=== PATIENT | female | born 1945 | race Caucasian/White ===

== ENCOUNTER 2018-12-01 16:07 | Inpatient (IN) | payer MEDICARE, OTHER ==
[2018-12-01] VITALS (7 sets, daily range): BP systolic 181–207; BP diastolic 69–110
[~2018-12-01] VITALS: Ht 154.9 cm; Wt 76.3 kg
--- NOTE | ~2018-12-01 | EKG ---
[place], [place] ELECTROCARDIOGRAM REPORT NAME: CHRISTIANO NEAL UNIT #: [id number] ROOM: 404 DOCTOR: RAFAEL DRAFT REPORT BIRTHDATE: [birth year] [facility] Test Date: 2018-12-01 Test Time: 19:11:21 Pat Name: CHRISTIANO NEAL Department: Room: 404 Gender: F Molecular Biologist: Sanjana Macias : 1945 Requested By: ALLA KRISHNAN Order Number: [id number] Reading MD: Antonia Espinal MD Measurements Intervals [place] Rate: 71 P: 28 MN: 185 QRS: -63 QRSD: 143 T: 117 QT: 456 QTc: 496 Interpretive Statements Atrial-ventricular dual-paced complexes No further analysis attempted due to paced rhythm Baseline wander in lead(s) V2 Compared to ECG 11/03/2018 18:47:22 No significant changes Electronically Signed On 12-07-2018 8:05:56 PDT by Antonia Espinal MD CM:EKGRPT:ELECTROCARDIOGRAM REPORT [id number] [id number] ALLA HALL DRAFT REPORT ALLA KRISHNAN M.D.
--- NOTE | ~2018-12-01 | EKG ---
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
--- NOTE | ~2018-12-01 | EKG ---
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 Macias : 1945 Requested By: ALLA KRISHNAN Order Number: [id number] Reading MD: Antonia Espinal MD Measurements Intervals [place] Rate: 77 P: 79 DE: 66 QRS: -60 QRSD: 85 T: 98 QT: 341 QTc: 386 Interpretive Statements Atrial flutter Left anterior fascicular block Abnormal R-wave progression, early transition Repol abnrm suggests ischemia, lateral leads Baseline wander in lead(s) I,III,aVR,aVL Compared to ECG 11/03/2018 18:47:22 Atrial abnormality now present Left anterior fascicular block now present Early repolarization now present Possible ischemia now present AV dual-paced complex(es) or rhythm no longer present Ventricular-paced complex(es) or rhythm no longer present Electronically Signed On 12-07-2018 8:06:15 PDT by Antonia Espinal MD CM:EKGRPT:ELECTROCARDIOGRAM REPORT [id number] [id number] ALLA HALL DRAFT REPORT ALLA KRISHNAN M.D.
[~2018-12-01 16:07] MED LIST: 'TENORMIN50 MG PO; ASPIRIN ADULT L81 M1 PO; ATENOLOL50 MG PO; AUGMENTIN 875875 MG PO; CALCIUM + D 6001 TAB PO; CALCIUM 600 +1 EA11 PO; HYDRODIURIL25 MG PO; INFLUENZA VACCINE IM; LIDEX 0.05% CRE15 GM T; LOPRESSOR25 MG PO; MAXITROL OPH; SOTALOL80 MG PO; SYNTHROID0.075 MG PO; VITAMIN D5000 I2 PO; XARE20MG PO; ZYRTEC10 MG PO; [UNRECOGNIZED DRUG - OTHER] PO
[2018-12-01 16:33] LABS: BASO # 0.1 10*3/uL (0.0-0.1); BASO % 0.8 % (0.0-1.0); EOS # 0.1 10*3/uL (0.0-0.4); EOS % 1.5 % (1.0-4.0); HEMATOCRIT 44.9 % (37.0-47.0); HEMOGLOBIN 14.7 g/dl (12.0-16.0); LYMPH # 2.7 10*3/uL (1.3-4.4); LYMPH % 29.5 % (27.0-41.0); MEAN CELL VOLUME 90.7 fl (81.0-99.0); MEAN CORPUSCULAR HGB 29.7 pg (27.0-31.0); MEAN CORPUSCULAR HGB CONC 32.7 g/dl (33.0-37.0); MEAN PLATELET VOLUME 11.5 fl (9.6-12.3); MONO # 0.7 10*3/uL (0.1-1.0); NEUT # 5.4 10*3/uL (2.3-7.9); PLATELET COUNT AUTOMATED 264 10*3/uL (130-400); RED BLOOD COUNT 4.95 10*6/uL (4.10-5.10); RED CELL DISTRI WIDTH 13.9 % (0-14.5); WHITE BLOOD COUNT 9.1 10*3/uL (4.8-10.8)
[2018-12-01 16:44] LABS: ACT PARTIAL THROMBO TIME 25.6 SECONDS (20.8-31.5)
[2018-12-01 16:49] LABS: ALBUMIN 4.3 gm/dl (3.1-4.5); CREATININE 1.2 mg/dL (0.55-1.02); POTASSIUM 3.8 mmol/L (3.5-5.1); TOTAL PROTEIN 8.3 gm/dL (6.4-8.2)
[2018-12-01 16:55] LABS: TROPONIN I 0.152 ng/ml (<0.045)
[2018-12-01] MEDS ORDERED: CALCIUM 600 +1 EA11 PO (17:37)
== END 2018-12-01 20:29 | disposition expired | DRG 313 ==
LOC: ED 16:07 → EDHOLD 17:46 → 4E 17:49
PROVIDERS: Emergency Medicine; ADMIT Internal Medicine
DX: R07.9 Chest pain, unspecified (principal); I12.9 Hypertensive chronic kidney disease with stage 1 through stage 4 chronic kidney disease, or unspecified chronic kidney disease; N18.9 Chronic kidney disease, unspecified; I48.0 Paroxysmal atrial fibrillation; E66.9 Obesity, unspecified; Z95.0 Presence of cardiac pacemaker; Z88.8 Allergy status to other drugs, medicaments and biological substances; Z88.5 Allergy status to narcotic agent; Z82.49 Family history of ischemic heart disease and other diseases of the circulatory system; Z68.31 Body mass index [BMI] 31.0-31.9, adult